=== PATIENT | male | born 1950 | race Caucasian/White ===

== ENCOUNTER 2017-04-03 15:12 | Observation (INO) | payer MEDICARE ==
[~2017-04-03] VITALS: Ht 177.8 cm; Wt 113.6 kg
[~2017-04-03 15:12] MED LIST: FAMO20T PO; HYDR25TA4 PO; LEVO200T6 PO; METF500T4 PO; NYST1000 PO; ONDA4TAB6 PO; OXYC-465 PO; OXYC-530 PO; SUCR1TAB30 PO; TADA5TAB2 PO
[2017-04-03 15:34] VITALS: BP 165/104; PULSE 58; RESP 16; O2SAT 99
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
[2017-04-03] MEDS ORDERED: Ondansetron 2 mg/mL 2 mL Inj ONE ×2 (15:38→19:15)
[2017-04-03] MEDS ORDERED: Ketamine 10 mg/mL 20 mL Inj IV ONE ×2 (15:50→17:15)
[2017-04-03] MEDS: HYDROmorphone 0.5 mg/0.5 mL iSecure Syringe IVPUSH PRN ×3 (15:51→16:46)
[2017-04-03 16:40] VITALS: BP 173/106; PULSE 64; RESP 16; O2SAT 96
--- NOTE | 2017-04-03 16:49 | DRSVH ---
PROCEDURE: X-RAY CHEST ONE VIEW, PORTABLE ([id number]) INDICATIONS: fall TECHNIQUE: One view of the chest was acquired. COMPARISON: None. FINDINGS: Surgical changes and devices: None. Lungs and pleura: No pleural effusions or pneumothorax. Lungs are clear. Mediastinum: Mediastinal contours appear normal. Heart size is normal. Bones and chest wall: No suspicious bony lesions. Overlying soft tissues appear unremarkable. IMPRESSION: No trauma found. Dictated by: Brady Bull M.D. on 04/03/2017 at 16:47 Approved by: Brady Bull M.D. on 04/03/2017 at 16:47
--- NOTE | 2017-04-03 16:51 | DRSVH ---
PROCEDURE: X-RAY RIGHT ANKLE, MINIMUM THREE VIEWS ([id number]) INDICATIONS: ankle inj TECHNIQUE: 3 views of the ankle were acquired. COMPARISON: None. FINDINGS: Bones: There is a severe trimalleolar fracture dislocation involving the right ankle, with anterior dislocation of the distal tibial plafond across the talar dome and also angulation with medial disloc ation in addition to the anterior dislocation on the frontal projection placing the fractured tip of the distal fibular diaphysis near the talar dome anteriorly, and the fracture margins across the base of the medial malleolus displaced medially. Ankle mortise is normally aligned. No suspicious bony lesions. Soft tissues: No tibiotalar joint effusion. Achilles tendon appears normal. IMPRESSION: High-grade fracture dislocation as discussed, trimalleolar-type, with malalignment both anteriorly and medially. Dictated by: Brady Bull M.D. on 04/03/2017 at 16:47 Approved by: Brady Bull M.D. on 04/03/2017 at 16:49
[2017-04-03] MEDS ORDERED: HYDROmorphone 1 mg/mL Inj IVPUSH PRN (17:00)
[2017-04-03 17:03] LABS: BASOPHILS % (AUTO) 0.1 % (0-3); Mean Corpuscular Hemoglobin 29.7 pg (27.0-35.0); Mean Corpuscular Volume 86.6 fL (81-100); NEUTROPHILS % (AUTO) 77.6 % (40-74); Platelet Count 58 bil/L (150-400)
[2017-04-03] MEDS ORDERED: Propofol 10 mg/mL 20 mL Inj IVPUSH ONE (17:15)
--- NOTE | 2017-04-03 17:17 | DRSVH ---
PROCEDURE: X-RAY CERVICAL SPINE, 2 OR 3 VIEWS INDICATIONS: fall TECHNIQUE: 3 view(s) of the cervical spine were acquired. COMPARISON: None. FINDINGS: Bones: No fractures or dislocations to the T1 level. The lateral masses of C1 appear intact on the odontoid view. No suspicious bony lesions. Soft tissues: No prevertebral soft tissue swelling. IMPRESSION: Quality of visualization is quite limited, both on the frontal and lateral projections, but no acute trauma found. CT scanning would be necessary for more accurate assessment if clinically warranted. Dictated by: Brady Bull M.D. on 04/03/2017 at 17:14 Approved by: Brady Bull M.D. on 04/03/2017 at 17:15
[2017-04-03 17:34] LABS: Magnesium 2.2 mg/dL (1.6-2.6)
[2017-04-03 18:28] VITALS: BP 129/75; PULSE 61; RESP 16; O2SAT 97
--- NOTE | 2017-04-03 18:44 | DRSVH ---
PROCEDURE: X-RAY RIGHT ANKLE, TWO VIEWS ([id number]) INDICATIONS: post reduction TECHNIQUE: 2 views of the ankle were acquired. COMPARISON: None. FINDINGS: Bones: No previously unrecognized fractures or dislocations. There has been a significant successfu l reduction of the degree of fracture dislocation involving the right ankle and distal tibia/fibula. Gross anatomic alignment has been reestablished. Ankle mortise is normally aligned. No suspicious bony lesions. Soft tissues: No tibiotalar joint effusion. Achilles tendon appears normal. IMPRESSION: No new fracture planes found, significant improvement in the degree of malalignment asso ciated with the complex trimalleolar fracture previously diagnose. Gross anatomic alignment has been established. Orthopedic surgical intervention remains anticipated. Dictated by: Brady Bull M.D. on 04/03/2017 at 18:42 Approved by: Brady Bull M.D. on 04/03/2017 at 18:43
[2017-04-03 19:00] LABS: APPEARANCE,URINE CLEAR (CLEAR,HAZY); COLOR,URINE YELLOW (YELLOW); OCCULT BLOOD,URINE NEGATIVE (NEGATIVE); UROBILINOGEN,URINE NORMAL (NORMAL)
[2017-04-03] MEDS ORDERED: GABA-502 PO (19:09)
[2017-04-03] MEDS ORDERED: PRAV10TA2 PO (19:09)
[2017-04-03] MEDS ORDERED: PRAV20TA2 PO (19:21)
[2017-04-03] MEDS ORDERED: FAMO20TA4 PO (19:21)
[2017-04-03] MEDS ORDERED: IBUP-1827 PO (19:34)
[2017-04-03] MEDS ORDERED: 0.9% Sodium Chloride 1,000 ML IV SCH (19:43)
[2017-04-03] MEDS ORDERED: HYDROcodone-APAP 5-325 mg Tablet PO PRN (19:45)
[2017-04-03] MEDS ORDERED: Alum-Mag Hydrox-Simeth 30 mL Suspension PO PRN (19:45)
[2017-04-03] MEDS ORDERED: Polyethylene Glycol (PEG) 17 Gm Powder PO PRN (19:45)
[2017-04-03] MEDS ORDERED: Ondansetron 2 mg/mL 2 mL Inj IVPUSH PRN (19:45)
[2017-04-03] MEDS ORDERED: HYDROmorphone 1 mg/mL Inj IVPUSH ONE (20:20)
[2017-04-03 20:30] VITALS: BP 133/85; PULSE 77; RESP 20; O2SAT 96
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
[2017-04-03] MEDS ORDERED: diphenhydrAMINE 25 mg Capsule PO PRN (21:05)
[2017-04-03 21:41] VITALS: BP 163/105; PULSE 66; RESP 20; O2SAT 96
[2017-04-03] MEDS ORDERED: .Epic Conversion Completed XX PRN (22:25)
== END 2017-04-04 01:31 | disposition admitted as inpatient to this hospital (09) ==
LOC: SED 15:12 → EDBD 15:12 → OSC 19:54
PROVIDERS: ADMIT Internal Medicine; ATTEND Internal Medicine
DX: R69 Illness, unspecified (principal)